=== PATIENT | male | born 1985 | race Caucasian/White ===

== ENCOUNTER 2021-06-21 07:53 | Inpatient (IN) | payer BC ==
--- NOTE | 2021-06-21 08:17 | ED ---
General Adult HPI - General Chief complaint: Psychiatric Symptoms Stated complaint: mental health Time Seen by Provider: 06/21/21 08:03 Source: patient, family, RN notes reviewed Mode of arrival: ambulatory Limitations: no limitations - History of Present Illness Initial comments: Patient is a pleasant 28-year-old male presenting to the emergency Department with depression. Symptoms have been occurring for several months, since October. Patient is depressed and has had thoughts of self-harm. Patient did okay. To the car exhaust 2 days ago. Patient has no physical complaints. Patient is not drowsy. Patient has been eating and drinking okay. Patient has been sleeping way too much. No homicidal thoughts. No hallucinations. - Related Data Home Medications Medication Instructions Recorded Confirmed DULoxetine HCL [Cymbalta] 60 mg PO DAILY 06/21/21 06/21/21 Methylphenidate HCl 20 mg PO DAILY 06/21/21 06/21/21 [Methylphenidate HCl CD] Allergies Allergy/AdvReac Type Severity Reaction Status Date / Time No Known Allergies Allergy Verified 06/21/21 09:32 Review of Systems ROS Statement: Those systems with pertinent positive or pertinent negative responses have been documented in the HPI. ROS Other: All systems not noted in ROS Statement are negative. Constitutional: Denies: fever Eyes: Denies: eye pain ENT: Denies: ear pain Respiratory: Denies: cough Cardiovascular: Denies: chest pain Endocrine: Denies: fatigue Gastrointestinal: Denies: abdominal pain Genitourinary: Denies: dysuria Musculoskeletal: Denies: back pain Skin: Denies: rash Psychiatric: Reports: depression, suicidal thoughts Past Medical History Past Medical History: No Reported History History of Any Multi-Drug Resistant Organisms: None Reported Past Surgical History: Tonsillectomy Past Psychological History: Depression Smoking Status: Never smoker Past Alcohol Use History: None Reported Past Drug Use History: None Reported General Exam Limitations: no limitations General appearance: alert, in no apparent distress Head exam: Present: normocephalic Eye exam: Present: normal appearance Neck exam: Present: normal inspection Respiratory exam: Present: normal lung sounds bilaterally Cardiovascular Exam: Present: regular rate, normal rhythm GI/Abdominal exam: Present: soft. Absent: tenderness Extremities exam: Present: normal inspection Neurological exam: Present: alert Psychiatric exam: Present: depressed (Tearful) Skin exam: Present: normal color Course Vital Signs 06/21/21 07:55 Temperature 98.8 F Pulse Rate 72 Respiratory 18 Rate Blood Pressure 152/94 O2 Sat by Pulse 94 L Oximetry Medical Decision Making - Medical Decision Making Patient was seen by mental health services with plans for transfer or admission. - Lab Data Lab Results 06/21/21 06/21/21 06/21/21 Range/Units 08:24 08:50 09:37 Carbon Monoxide, Quant 1.7 (<10.0) % Urine Opiates Screen Not Detected (NotDetected) Ur Oxycodone Screen Not Detected (NotDetected) Urine Methadone Screen Not Detected (NotDetected) Ur Propoxyphene Screen Not Detected (NotDetected) Ur Barbiturates Screen Not Detected (NotDetected) U Tricyclic Antidepress Not Detected (NotDetected) Ur Phencyclidine Scrn Not Detected (NotDetected) Ur Amphetamines Screen Not Detected (NotDetected) U Methamphetamines Scrn Not Detected (NotDetected) U Benzodiazepines Scrn Not Detected (NotDetected) Urine Cocaine Screen Not Detected (NotDetected) U Marijuana (THC) Screen Not Detected (NotDetected) Coronavirus (PCR) Not Detected (Not Detectd) Disposition Clinical Impression: Depression, Suicidal ideation Disposition: TRANSFER TO PSYCH HOSP/UNIT Is patient prescribed a controlled substance at d/c from ED?: No Referrals: None,Stated [REFERRING] - 1-2 days Decision Time: 14:09
[2021-06-21 09:41] LABS: Amphetamine Screen,Urine Not Detected (NotDetected); Barbiturate Screen,Urine Not Detected (NotDetected); Benzodiazepines Screen,Urine Not Detected (NotDetected); Cocaine Screen,Urine Not Detected (NotDetected); Methadone Screen, Urine Not Detected (NotDetected); Opiate Screen,Urine Not Detected (NotDetected); Oxycodone Screen, Urine Not Detected (NotDetected); Phencyclidine Screen,Urine Not Detected (NotDetected); Tricyclic Antidepressant,Urine Not Detected (NotDetected); Urn Cannabinoid Scrn Not Detected (NotDetected)
[2021-06-21] MEDS ORDERED: MAG HYDROX/AL HYDROX/SIMETH 30 ML CUP PO PRN (15:28)
[2021-06-21] MEDS ORDERED: ACETAMINOPHEN TAB 325 MG TAB PO PRN (15:28)
[2021-06-21] MEDS ORDERED: MAGNESIUM HYDROXIDE 2,400 MG/10 ML CUP PO PRN (15:28)
[2021-06-21] MEDS ORDERED: LORazepam 1 MG TAB PO PRN (15:28)
[2021-06-21] MEDS ORDERED: HALOPERIDOL LACTATE 5 MG/ML 1 ML VIAL IM PRN (15:28)
[2021-06-21] MEDS ORDERED: LORazepam 2 MG/ML INJ IM PRN (15:32)
[2021-06-21] MEDS ORDERED: HALOPERIDOL ORAL SOLN 10 MG/5 ML CUP PO PRN (15:38)
[2021-06-21] MEDS ORDERED: HALOPERIDOL ORAL SOLN 10 MG/5 ML CUP PO SCH (18:00)
[2021-06-21 19:21] VITALS: RESP 16
[2021-06-21] MEDS: traZODone HCL 50 MG TAB PO SCH (21:05)
--- NOTE | 2021-06-21 23:49 | P.MDCNMH ---
History of Present Illness H&P Date: 06/21/21 Chief Complaint: Medical evaluation 36-year-old male with depression Patient comes in due to depression and suicidal ideation. Patient ran his car in a closed garage then changed his mind continue for evaluation He currently denies any medical concerns denies any fevers chills headache chest pain trouble breathing coughing nausea vomiting abdominal pain he denies any bowel or urinary changes He admits to occasional alcohol, however denies any drug abuse or smoking Review of Systems Pertinent positives as noted in HPI. All other systems were reviewed and are negative Past Medical History Past Medical History: No Reported History History of Any Multi-Drug Resistant Organisms: None Reported Past Surgical History: Tonsillectomy Past Psychological History: Depression Smoking Status: Never smoker Past Alcohol Use History: None Reported Past Drug Use History: None Reported - Past Family History Family Family Medical History: No Reported History Medications and Allergies Home Medications Medication Instructions Recorded Confirmed Type DULoxetine HCL [Cymbalta] 60 mg PO DAILY 06/21/21 06/21/21 History Methylphenidate HCl 20 mg PO DAILY 06/21/21 06/21/21 History [Methylphenidate HCl CD] Allergies Allergy/AdvReac Type Severity Reaction Status Date / Time No Known Allergies Allergy Verified 06/21/21 19:24 Physical Exam Vitals: Vital Signs Temp Pulse Pulse Resp BP BP Pulse Ox 06/21/21 18:07 97.4 F L 78 16 131/80 99 06/21/21 16:21 98.8 F 72 18 152/94 94 L 06/21/21 07:55 98.8 F 72 18 152/94 94 L Intake and Output 06/21/21 06/21/21 06/21/21 06:59 14:59 22:59 Other: Weight 80.739 kg 76.5 kg Constitutional: No acute distress, conversant, pleasant Eyes: Anicteric sclerae, moist conjunctiva, Pupils equal round reactive to light ENMT: NC/AT Oropharynx clear, no erythema, or exudates Neck: Supple, FROM, no masses, or JVD No carotid bruits No thyromegaly Lungs: Clear to auscultation Clear to percussion Normal respiratory effort, no accessory muscle use Cardiovascular: Heart regular in rate and rhythm, No murmurs, gallops, or rubs No peripheral edema Abdominal: Soft Nontender, no guarding, rebound or rigidity Abdomen moving with respiration Normoactive bowel sounds No hepatomegaly, No splenomegaly No palpable mass No abdominal wall hernia noted Skin: Normal temperature, tone, texture, turgor No induration No subcutaneous nodules No rash, lesions No ulcers Extremities: No digital cyanosis No clubbing Pedal pulses intact and symmetrical Radial pulses intact and symmetrical No calf tenderness Psychiatric: Alert and oriented to person, place and time Depressed mood Neuro Muscles Strength 5/5 in all 4 extremities Sensation to light touch grossly present throughout Cranial nerves II-XII grossly intact No focal sensory deficits Lymphatics: no palpable cervical or supraclavicular , or inguinal lymph nodes Cranial Nerve Examination - Cranial Nerves Cranial Nerve II- Optic: Intact Cranial Nerve III- Oculomotor: Intact Cranial Nerve IV- Trochlear: Intact Cranial Nerve V- Trigeminal: Intact Cranial Nerve - Abducens: Intact Cranial Nerve VII- Facial: Intact Cranial Nerve VIII- Auditory: Intact Cranial Nerve IX- Glossopharyngeal: Intact Cranial Nerve X- Vagus: Intact Cranial Nerve XI- Accessory: Intact Cranial Nerve XII- Hypoglossal: Intact Assessment and Plan Assessment: Depression suicidal ideation Management per psych Follow-up blood work Medically stable no active medical concerns Thank you for allowing us to participate in the care of this patient. We will follow peripherally. Do not hesitate to contact us with questions. Someone can be reached from the [facility] hospitalist group at all hours of the day at [phone].
[2021-06-22 07:42] LABS: Basophils # (A) 0.1 k/uL (0-0.2); Basophils % (A) 1 %; Eosinophils # (A) 0.7 k/uL (0-0.7); Eosinophils % (A) 11 %; HCT 54.4 % (39.0-53.0); HGB 17.4 gm/dL (13.0-17.5); Lymphocytes # (A) 2.1 k/uL (1.0-4.8); Lymphocytes % (A) 32 %; MCH 29.9 pg (25.0-35.0); MCHC 31.9 g/dL (31.0-37.0); MCV 93.8 fL (80.0-100.0); Mean Platelet Volume 7.1; Monocytes # (A) 0.4 k/uL (0-1.0); Monocytes % (A) 7 %; Neutrophils % (A) 47 %; Platelet Count 244 k/uL (150-450); RDW 13.7 % (11.5-15.5); WBC 6.4 k/uL (3.8-10.6)
[2021-06-22 08:01] LABS: ALT 24 U/L (4-49); AST 20 U/L (17-59); African American GFR (CKD) >90 (>60 ml/min/1.73 sqM); Albumin 4.5 g/dL (3.5-5.0); Alkaline Phosphatase 58 U/L (38-126); Anion Gap 6 mmol/L; Blood Urea Nitrogen 16 mg/dL (9-20); Calcium 9.5 mg/dL (8.4-10.2); Carbon Dioxide 28 mmol/L (22-30); Chloride 106 mmol/L (98-107); Glucose 108 mg/dL (74-99); Non-African American GFR(CKD) 83 (>60 ml/min/1.73 sqM); Potassium 4.3 mmol/L (3.5-5.1); Sodium 140 mmol/L (137-145); Total Bilirubin 0.6 mg/dL (0.2-1.3); Total Protein 7.6 g/dL (6.3-8.2)
[2021-06-22] MEDS ORDERED: DULoxetine HCL 60 MG CAPSULE.DR PO SCH (09:00)
[2021-06-22 10:02] LABS: Estimated Average Glucose UNC
[2021-06-22] MEDS ORDERED: hydrOXYzine pamoate 25 MG CAP PO PRN (12:18)
[2021-06-22] MEDS: VENLAFAXINE HCL ER 37.5 MG CAP PO SCH (12:33)
--- NOTE | 2021-06-22 13:58 | P.HP ---
Psychiatric H&P - . H&P Date: 06/22/21 History & Physical: Allergies Allergy/AdvReac Type Severity Reaction Status Date / Time No Known Allergies Allergy Verified 06/21/21 19:24 Vital Signs Temp 97.9 F 06/22/21 06:41 Pulse 68 06/22/21 06:41 Resp 16 06/22/21 06:41 BP 132/90 06/22/21 06:41 Pulse Ox 99 06/21/21 18:07 Intake & Output 06/21/21 06/22/21 06/22/21 18:59 06:59 18:59 Weight 76.5 kg Laboratory Last Values WBC 6.4 k/uL (3.8-10.6) 06/22/21 07:06 RBC 5.80 m/uL (4.30-5.90) 06/22/21 07:06 Hgb 17.4 gm/dL (13.0-17.5) 06/22/21 07:06 Hct 54.4 % (39.0-53.0) H 06/22/21 07:06 MCV 93.8 fL (80.0-100.0) 06/22/21 07:06 MCH 29.9 pg (25.0-35.0) 06/22/21 07:06 MCHC 31.9 g/dL (31.0-37.0) 06/22/21 07:06 RDW 13.7 % (11.5-15.5) 06/22/21 07:06 Plt Count 244 k/uL (150-450) 06/22/21 07:06 MPV 7.1 06/22/21 07:06 Neutrophils % 47 % 06/22/21 07:06 Lymphocytes % 32 % 06/22/21 07:06 Monocytes % 7 % 06/22/21 07:06 Eosinophils % 11 % 06/22/21 07:06 Basophils % 1 % 06/22/21 07:06 Neutrophils # 3.0 k/uL (1.3-7.7) 06/22/21 07:06 Lymphocytes # 2.1 k/uL (1.0-4.8) 06/22/21 07:06 Monocytes # 0.4 k/uL (0-1.0) 06/22/21 07:06 Eosinophils # 0.7 k/uL (0-0.7) 06/22/21 07:06 Basophils # 0.1 k/uL (0-0.2) 06/22/21 07:06 Carbon Monoxide, Quant 1.7 % (<10.0) 06/21/21 08:50 Sodium 140 mmol/L (137-145) 06/22/21 07:06 Potassium 4.3 mmol/L (3.5-5.1) 06/22/21 07:06 Chloride 106 mmol/L (98-107) 06/22/21 07:06 Carbon Dioxide 28 mmol/L (22-30) 06/22/21 07:06 Anion Gap 6 mmol/L 06/22/21 07:06 BUN 16 mg/dL (9-20) 06/22/21 07:06 Creatinine 1.12 mg/dL (0.66-1.25) 06/22/21 07:06 Est GFR (CKD-EPI)AfAm >90 (>60 ml/min/1.73 sqM) 06/22/21 07:06 Est GFR (CKD-EPI)NonAf 83 (>60 ml/min/1.73 sqM) 06/22/21 07:06 Glucose 108 mg/dL (74-99) H 06/22/21 07:[address] Glu mg/dL [facility] 06/22/21 07:06 Calcium 9.5 mg/dL (8.4-10.2) 06/22/21 07:06 Total Bilirubin 0.6 mg/dL (0.2-1.3) 06/22/21 07:06 AST 20 U/L (17-59) 06/22/21 07:06 ALT 24 U/L (4-49) 06/22/21 07:06 Alkaline Phosphatase 58 U/L (38-126) 06/22/21 07:06 Total Protein 7.6 g/dL (6.3-8.2) 06/22/21 07:06 Albumin 4.5 g/dL (3.5-5.0) 06/22/21 07:06 TSH 1.020 mIU/L (0.465-4.680) 06/22/21 07:06 Urine Opiates Screen Not Detected (NotDetected) 06/21/21 08:24 Ur Oxycodone Screen Not Detected (NotDetected) 06/21/21 08:24 Urine Methadone Screen Not Detected (NotDetected) 06/21/21 08:24 Ur Propoxyphene Screen Not Detected (NotDetected) 06/21/21 08:24 Ur Barbiturates Screen Not Detected (NotDetected) 06/21/21 08:24 U Tricyclic Antidepress Not Detected (NotDetected) 06/21/21 08:24 Ur Phencyclidine Scrn Not Detected (NotDetected) 06/21/21 08:24 Ur Amphetamines Screen Not Detected (NotDetected) 06/21/21 08:24 U Methamphetamines Scrn Not Detected (NotDetected) 06/21/21 08:24 U Benzodiazepines Scrn Not Detected (NotDetected) 06/21/21 08:24 Urine Cocaine Screen Not Detected (NotDetected) 06/21/21 08:24 U Marijuana (THC) Screen Not Detected (NotDetected) 06/21/21 08:24 Coronavirus (PCR) Not Detected (Not Detectd) 06/21/21 09:37 06/22/21 10:37 IDENTIFYING DATA: Patient is a 36-year-old male, currently resides in [place] and lives with roommates, is single has no kids. Was recently staying at his mother's house. 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 HPI: Patient presented to the hospital yesterday with complaints of depression which has been going on for several months. Patient was also reporting suicidal thoughts while in the ER. Patient apparently recently hooked up a hose to his car exhaust 2 days ago. Patient's urine drug screen was negative. Patient was seen today and agreeable to speak to typewriters functional tester. He appeared to be clean, and well groomed. He claims that he's been dealing with depression for approximately 10 years now. He states that since October he has been having worsening anxiety and mood and states that it's recently contacted the point where he has had very poor concentration and has been having troubles at work. He claims that he had a breakup of his girlfriend in February and took a leave of absence from work as he was not able to cope. He claims that he has been off of work for about 4 months now and try to go back to work and states that he was not able to. He states that he has been staying in [place] for some time and seen a psychiatrist and therapist there however states that it is not been helping. He claims that he was getting ketamine infusions as well in [place] in February which did not help him much. He also states that he was doing an intensive TMS program in March which also did not help much. He states that he has been struggling with poor energy. Difficulty getting out of bed in the morning. He claims that he's been having suicidal thoughts however no intent or plan. He claims that after he tried to connect with a hose to the car and in a suicide attempt he claims that he got scared because "I couldn't breathe" and he states that it wasn't very peaceful. He states that he disconnected everything and called his sister who lives in the area who stayed with him. He states that his mother flew in from [place] to see him. He is denying any paranoia at this time. He claims that his sleep has been about 10-12 hours every day. He has fair appetite. He has chronic suicidal thoughts no intent or plan. Denies any homicidal ideations intent or plan. At this time patient denies any auditory or visual hallucinations. Patient denies any flight of ideas racing thoughts and increased in goal directed behavior. Patient admits to using no recreational drugs or cigarettes. PAST PSYCHIATRIC HISTORY: Patient states that he has a history of depression and anxiety. He claims that he's been on several psychiatric medications in the past and states that Effexor has been the one that helped him the most. He is currently on Cymbalta 60 mg. He claims that he was admitted in a psychiatric hospital in [place] recently for 2 days and then discharged. He states that he was following up with a psychiatrist in [place] and also doing therapy. He has done ketamine infusion treatments and also TMS within the past year. Patient denies any history of suicide attempts in the past. PMH:denies ALLERGIES: as per EMR CHEMICAL DEPENDENCY HISTORY: as per HPI FAMILY PSYCHIATRIC/SUBSTANCE USE HISTORY: denies SOCIAL HISTORY: Patient was born and raised in [facility]. He states that he completed high school and obtained a degree in engineering at [employer] and [employer]. He states that he does not have any legal problems. He is currently single, has no kids and currently resides in [place] where he lives with roommates. MENTAL STATUS EXAM: General Appearance: Patient appears to be short in stature, bald, clean cut, stated age is alert, directable, and attempts to cooperate. Patient appears to have fair hygiene and grooming. Behavior: Patient is seated without any agitated behavior. Timid Speech: Patient's speech is fluent and nonpressured. Soft spoken at times. Mood/Affect: Patient reports their mood is depressed and anxious, affect is congruent and constricted. Suicidality/Homicidality: Patient denies having any homicidal ideation intent or plan. He admits to current ongoing suicidal thoughts however no intent or plan. Perceptions: Patient denies any visual hallucinations and denies any auditory hallucinations Though content/process: There is no evidence of any delusional thought content and thought process is linear and goal-directed. Memory and concentration: AOX3, grossly intact for the purposes of this session. Can spell "WORLD" backwards Judgment and insight: Fair STRENGTHS/WEAKNESSES: strength is that patient is resilient. Weakness is that patient has treatment resistant symptoms and chronic mental illness. INTELLECT: average IMPRESSIONS: Major depressive disorder, recurrent, severe without psychotic features Generalized anxiety disorder PLAN: -Patient is admitted under voluntary status to MHU for stabilization of psychiatric symptoms and safety. Patient has signed adult voluntary form and medication consent and is placed in patient's chart. -Medications : After discussing medication options, patient wanted to be started back on Effexor XR 37.5 mg daily for mood/anxiety. We'll also start trazodone 50 mg daily at bedtime for insomnia/mood. Vistaril when necessary for anxiety. -Ativan and Haldol PRN for agitation/aggression -Patient was informed of the risks, benefits and side effects of the medication and patient verbally consented to taking the medications. Patient signed med consent form and was placed in chart. -Internal Medicine consult to perform medical evaluation and physical. -NRT - not needed as patient does not smoke -SW on board for discharge planning. Encourage patient to participate in groups to work on coping skills.
[2021-06-22 16:44] LABS: Chol/HDL Ratio 5.12 Ratio; LDL Cholesterol,Calculated 149.8 mg/dL (0.0-131.0)
[2021-06-22] MEDS: traZODone HCL 50 MG TAB PO SCH (20:09)
[2021-06-22] MEDS ORDERED: DULoxetine HCL 30 MG CAPSULE.DR PO SCH (21:00)
[2021-06-23] MEDS: VENLAFAXINE HCL ER 37.5 MG CAP PO SCH (09:02)
--- NOTE | 2021-06-23 10:23 | P.PN ---
Progress Note - Text Progress Note Date: 06/23/21 Interval History: Patient was seen sitting in a group today and was directable and agreeable to speak with telegraphic typewriter mechanic in the office. Patient appears to be more cooperative today with telegraphic typewriter mechanic and was appropriate. He asked questions about his medications and different options. He claims that he spoke with his mother who has been supportive of his care and treatment over the phone yesterday. He claims that he is doing better in terms of his mood and anxiety today. He is agreeable to have his Effexor increased for tomorrow. He claims that he was able to sleep very well last night with the trazodone and slept to the fire alarm. He claims that he is going to groups and participating as best as he can. He appears to be more future oriented. He claims that he still wants to go to [place] to do a partial hospitalization program. At this time patient denies any suicidal or homical ideations, intent or plan. Patient denies any auditory, visual hallucinations and denies any paranoia or delusions. Patient denies any side effects from the medications and has been compliant with meds. Mental Status Exam: General Appearance: Patient appears to be short in stature, bald, clean cut, stated age is alert, directable, and attempts to cooperate. Patient appears to have fair hygiene and grooming. Behavior: Patient is seated without any agitated behavior. Timid Speech: Patient's speech is fluent and nonpressured. Soft spoken at times, improving mildly Mood/Affect: Patient reports their mood is depressed and anxious, affect is congruent and constricted. Suicidality/Homicidality: Patient denies having any homicidal ideation intent or plan. He denies any suicidal thoughts today, no intent or plan. Perceptions: Patient denies any visual hallucinations and denies any auditory hallucinations Though content/process: There is no evidence of any delusional thought content and thought process is linear and goal-directed. Memory and concentration: AOX3, grossly intact for the purposes of this session Judgment and insight: Fair Assessment Major depressive disorder, recurrent, severe without psychotic features Generalized anxiety disorder Plan: -Patient continues to meet criteria for inpatient psychiatric admission for symptom stabilization and safety. Patient has not signed adult voluntary form and medication consent and was placed in patient's chart. -Medications: Increased Effexor XR to 75 mg daily for mood/anxiety, trazodone 50 mg daily at bedtime for insomnia/mood, Vistaril when necessary for anxiety. -When necessary Ativan and Haldol for agitation/aggression. -NRT - not needed as patient does not smoke. -SW on board for discharge planning. Encouraged the patient to participate in milieu. Patients mother is trying to arrange for patient to be enrolled in a partial program in [facility]. Likely discharge tomorrow back home with mother.
[2021-06-23] MEDS: traZODone HCL 50 MG TAB PO SCH (21:04)
[2021-06-24 06:55] VITALS: BP 103/66; PULSE 106; TEMP 98
[2021-06-24] MEDS ORDERED: VENLAFAXINE HCL ER 75 MG CAP PO SCH (09:00)
--- NOTE | 2021-06-24 09:58 | P.DS ---
Providers Date of admission: 06/21/21 15:00 Expected date of discharge: 06/24/21 Attending physician: Chico Trejo MD Consults: 06/21/21 15:28 Consult Physician Routine Consulting Provider: [facility] Consult Reason/Comments: H and P Do you want consulting provider notified?: Yes Primary care physician: Physician Nonstaff - Discharge Diagnosis(es) (1) Major depressive disorder, recurrent severe without psychotic features Current Visit: Yes Status: Acute Priority: High (2) Generalized anxiety disorder Current Visit: Yes Status: Acute Priority: Medium Hospital Course: Admission HPI: Admission note was completed by music writer "Patient is a 36-year-old male, currently resides in [place] and lives with roommates, is single has no kids. Was recently staying at his mother's house. 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 Patient presented to the hospital yesterday with complaints of depression which has been going on for several months. Patient was also reporting suicidal thoughts while in the ER. Patient apparently recently hooked up a hose to his car exhaust 2 days ago. Patient's urine drug screen was negative. Patient was seen today and agreeable to speak to music writer. He appeared to be clean, and well groomed. He claims that he's been dealing with depression for approximately 10 years now. He states that since October he has been having worsening anxiety and mood and states that it's recently contacted the point where he has had very poor concentration and has been having troubles at work. He claims that he had a breakup of his girlfriend in February and took a leave of absence from work as he was not able to cope. He claims that he has been off of work for about 4 months now and try to go back to work and states that he was not able to. He states that he has been staying in [place] for some time and seen a psychiatrist and therapist there however states that it is not been helping. He claims that he was getting ketamine infusions as well in [place] in February which did not help him much. He also states that he was doing an intensive TMS program in March which also did not help much. He states that he has been struggling with poor energy. Difficulty getting out of bed in the morning. He claims that he's been having suicidal thoughts however no intent or plan. He claims that after he tried to connect with a hose to the car and in a suicide attempt he claims that he got scared because "I couldn't breathe" and he states that it wasn't very peaceful. He states that he disconnected everything and called his sister who lives in the area who stayed with him. He states that his mother flew in from [place] to see him. He is denying any paranoia at this time. He claims that his sleep has been about 10-12 hours every day. He has fair appetite. He has chronic suicidal thoughts no intent or plan. Denies any homicidal ideations intent or plan. At this time patient denies any auditory or visual hallucinations. Patient denies any flight of ideas racing thoughts and increased in goal directed behavior. Patient admits to using no recreational drugs or cigarettes." Hospital course: Upon admission to the unit patient was directable and agreeable to commence treatment and signed adult voluntary form . Patient got along well with other patients on the unit and followed unit protocol. Patient was compliant with the medications and denied any side effects throughout hospital course. Patient was started on Effexor XR and titrate up the dose of 75 mg daily for mood/anxiety. Patient was also started on trazodone 50 mg daily at bedtime for insomnia/mood. He was also started on Vistaril when necessary for anxiety. Patient spoke of his stressors and engaged in therapy both group and individual. Patient was also seen by medical team for history and physical exam. Throughout the course of the hospitalization patient gradually improved with regards to mood, anxiety, sleep and became more future oriented with improved insight and judgment. On the day of discharge patient denied any suicidal or homicidal ideations intent or plan denied any auditory or visual hallucinations. Patient endorsed wanting to live for his career, to travel and family. The patient denied any access to guns or weapons. Patient denied any paranoia and did not endorse any delusions. Patient does not have a significant history of substance abuse however was counseled on abstaining from all substances including alcohol and marijuana. Patient was also counseled on the medications and need for regular compliance and was encouraged to follow-up with their outpatient appointment for mental health and also for primary care. Prior to discharge a family meeting will be arranged by social services manager to answer any questions and ensure safety upon discharge. Also to ensure that any guns or weapons are safely locked away or remove from the house. Patient's mother is attempting to get patient into a partial hospitalization program in [place] and until then will look after patient at home. Patient was requesting to be discharged today and feels good to go home and wants to continue further titration of his meds as an outpatient or through the partial program. Mental status exam: General Appearance: Patient appears to be short in stature, bald, stated age is alert, pleasant, and cooperative. Patient is in no acute distress and has improved hygiene and grooming Behavior: Patient is calmly seated without any agitated behavior. Speech: Patient's speech is fluent and nonpressured. Mood/Affect: Patient reports their mood is "alright", affect is congruent and euthymic. Suicidality/Homicidality: Patient denies having any suicidal or homicidal ideation intent or plan. Perceptions: Patient denies any auditory or visual hallucinations. Though content/process: There is no evidence of any delusional thought content and thought process is linear and goal-directed. more future oriented Memory and concentration: AOX3, grossly intact for the purposes of this session. Can spell "WORLD" backwards correctly. Judgment and insight: improved with guarded prognosis Impression: Major depressive disorder, recurrent, severe without psychotic features Generalized anxiety disorder Plan: -Continue with discharge today as patient has improved and stabilized psychiatrically and is not currently an imminent threat to himself and/or others. Patient will remain at chronically elevated risk for harm to self and/or others due to his chronic history of depression. -Continue medications: Effexor XR 75 mg daily for mood/anxiety. It was explained to patient that this dose should likely be increased in 1-2 weeks by his outpatient psychiatrist. continue with trazodone 50 mg qhs for insomnia /mood. vistaril 25 mg daily prn for anxiety -Patient was counseled on the need for medication compliance and appropriate follow-up at mental health and also primary care for medical issues. Patient v erbalized understanding and agreed. -Social work to arrange for and conduct family meeting to ensure safety upon discharge and answer any questions/concerns. Social work also to arrange for patients follow up appointments for psychiatric care along with follow up with primary care provider. -Patient counseled on abstaining from recreational drugs and marijuana and alcohol. Was informed/educated on the adverse effects on their physical and mental health. Patient verbally agreed and understood. -Patient's mother is attempting to get patient enrolled in partial hospitalization program in [facility]. -Patient was instructed to return to the hospital or seek immediate medical care if their psychiatric or medical symptoms do worsen or reoccur. Allergies Allergy/AdvReac Type Severity Reaction Status Date / Time No Known Allergies Allergy Verified 06/21/21 19:24 Laboratory Results WBC 6.4 k/uL (3.8-10.6) 06/22/21 07:06 RBC 5.80 m/uL (4.30-5.90) 06/22/21 07:06 Hgb 17.4 gm/dL (13.0-17.5) 06/22/21 07:06 Hct 54.4 % (39.0-53.0) H 06/22/21 07:06 MCV 93.8 fL (80.0-100.0) 06/22/21 07:06 MCH 29.9 pg (25.0-35.0) 06/22/21 07:06 MCHC 31.9 g/dL (31.0-37.0) 06/22/21 07:06 RDW 13.7 % (11.5-15.5) 06/22/21 07:06 Plt Count 244 k/uL (150-450) 06/22/21 07:06 MPV 7.1 06/22/21 07:06 Neutrophils % 47 % 06/22/21 07:06 Lymphocytes % 32 % 06/22/21 07:06 Monocytes % 7 % 06/22/21 07:06 Eosinophils % 11 % 06/22/21 07:06 Basophils % 1 % 06/22/21 07:06 Neutrophils # 3.0 k/uL (1.3-7.7) 06/22/21 07:06 Lymphocytes # 2.1 k/uL (1.0-4.8) 06/22/21 07:06 Monocytes # 0.4 k/uL (0-1.0) 06/22/21 07:06 Eosinophils # 0.7 k/uL (0-0.7) 06/22/21 07:06 Basophils # 0.1 k/uL (0-0.2) 06/22/21 07:06 Carbon Monoxide, Quant 1.7 % (<10.0) 06/21/21 08:50 Sodium 140 mmol/L (137-145) 06/22/21 07:06 Potassium 4.3 mmol/L (3.5-5.1) 06/22/21 07:06 Chloride 106 mmol/L (98-107) 06/22/21 07:06 Carbon Dioxide 28 mmol/L (22-30) 06/22/21 07:06 Anion Gap 6 mmol/L 06/22/21 07:06 BUN 16 mg/dL (9-20) 06/22/21 07:06 Creatinine 1.12 mg/dL (0.66-1.25) 06/22/21 07:06 Est GFR (CKD-EPI)AfAm >90 (>60 ml/min/1.73 sqM) 06/22/21 07:06 Est GFR (CKD-EPI)NonAf 83 (>60 ml/min/1.73 sqM) 06/22/21 07:06 Glucose 108 mg/dL (74-99) H 06/22/21 07:[address] Glu mg/dL [facility] 06/22/21 07:06 Hemoglobin A1c CANCELED % 06/22/21 07:06 Calcium 9.5 mg/dL (8.4-10.2) 06/22/21 07:06 Total Bilirubin 0.6 mg/dL (0.2-1.3) 06/22/21 07:06 AST 20 U/L (17-59) 06/22/21 07:06 ALT 24 U/L (4-49) 06/22/21 07:06 Alkaline Phosphatase 58 U/L (38-126) 06/22/21 07:06 Total Protein 7.6 g/dL (6.3-8.2) 06/22/21 07:06 Albumin 4.5 g/dL (3.5-5.0) 06/22/21 07:06 Triglycerides 144.00 mg/dL (0.00-149.00) 06/22/21 07:06 Cholesterol 222.00 mg/dL (0.00-200.00) H 06/22/21 07:06 LDL Cholesterol, Calc 149.8 mg/dL (0.0-131.0) H 06/22/21 07:06 VLDL Cholesterol, Calc 28.80 mg/dL (5.00-40.00) 06/22/21 07:06 HDL Cholesterol 43.40 mg/dL (40.00-60.00) 06/22/21 07:06 Cholesterol/HDL Ratio 5.12 Ratio 06/22/21 07:06 TSH 1.020 mIU/L (0.465-4.680) 06/22/21 07:06 Urine Opiates Screen Not Detected (NotDetected) 06/21/21 08:24 Ur Oxycodone Screen Not Detected (NotDetected) 06/21/21 08:24 Urine Methadone Screen Not Detected (NotDetected) 06/21/21 08:24 Ur Propoxyphene Screen Not Detected (NotDetected) 06/21/21 08:24 Ur Barbiturates Screen Not Detected (NotDetected) 06/21/21 08:24 U Tricyclic Antidepress Not Detected (NotDetected) 06/21/21 08:24 Ur Phencyclidine Scrn Not Detected (NotDetected) 06/21/21 08:24 Ur Amphetamines Screen Not Detected (NotDetected) 06/21/21 08:24 U Methamphetamines Scrn Not Detected (NotDetected) 06/21/21 08:24 U Benzodiazepines Scrn Not Detected (NotDetected) 06/21/21 08:24 Urine Cocaine Screen Not Detected (NotDetected) 06/21/21 08:24 U Marijuana (THC) Screen Not Detected (NotDetected) 06/21/21 08:24 Coronavirus (PCR) Not Detected (Not Detectd) 06/21/21 09:37 Vital Signs Temp 98 F 06/24/21 06:37 Pulse 106 H 06/24/21 06:37 Resp 16 06/24/21 06:37 BP 103/66 06/24/21 06:37 Pulse Ox 99 06/21/21 18:07 Patient Condition at Discharge: Stable Plan - Discharge Summary Discharge Rx Participant: No New Discharge Prescriptions: New Venlafaxine HCl ER [Effexor XR] 75 mg PO DAILY 30 Days capsule hydrOXYzine pamoate [Vistaril] 25 mg PO DAILY PRN 14 Days cap PRN Reason: Anxiety traZODone HCL [Desyrel] 50 mg PO HS 30 Days tab Discontinued DULoxetine HCL [Cymbalta] 60 mg PO DAILY Methylphenidate HCl [Methylphenidate HCl CD] 20 mg PO DAILY Discharge Medication List Venlafaxine HCl ER [Effexor XR] 75 mg PO DAILY 30 Days capsule 06/24/21 [Rx] hydrOXYzine pamoate [Vistaril] 25 mg PO DAILY PRN 14 Days cap 06/24/21 [Rx] traZODone HCL [Desyrel] 50 mg PO HS 30 Days tab 06/24/21 [Rx] Follow up Appointment(s)/Referral(s): None,Stated [REFERRING] - 1-2 days Activity/Diet/Wound Care/Special Instructions: Activity and diet as tolerated. Avoid the use of street drugs and alcohol. Take all medications as prescribed. When you are in need of refills on your medicatio ns please contact your medical provider and/or outpatient psychiatrist to have this done. Please go to scheduled outpatient appointment for aftercare treatment. If symptoms return or become worse, call the crisis line at and/or go to the nearest emergency room for evaluation Discharge Disposition: HOME SELF-CARE
== END 2021-06-24 14:13 | disposition home or self-care (01) | DRG 885 ==
LOC: EC 07:53 → 3MHU 15:00
PROVIDERS: ADMIT Psychiatry & Neurology Psychiatry; ATTEND Psychiatry & Neurology Psychiatry
DX: F33.2 Major depressive disorder, recurrent severe without psychotic features (principal); F41.1 Generalized anxiety disorder; G47.00 Insomnia, unspecified; Z79.899 Other long term (current) drug therapy; Z20.822 Contact with and (suspected) exposure to COVID-19; Z90.89 Acquired absence of other organs; Z71.89 Other specified counseling; T14.91XA Suicide attempt, initial encounter; T65.892A Toxic effect of other specified substances, intentional self-harm, initial encounter; Y92.89 Other specified places as the place of occurrence of the external cause; R45.1 Restlessness and agitation
CPT/HCPCS: 80053; 80061; 80306; 82075; 82375; 83036; 84443; 85025; 87635; 99285